=== PATIENT | male | born 1960 | race African-American/Black ===

== ENCOUNTER 2017-08-31 20:04 | Inpatient (IN) | payer OTHER ==
[~2017-08-31] VITALS: Ht 180.3 cm; Wt 143.3 kg
[~2017-08-31 20:04] MED LIST: COUMADIN10 MG; COZAAR100 MG; GABAPENTIN400 MG; LASIX20 MG; NABUMETONE750 MG; NEURONTIN600 MG; ONGLYZA5 MG
== END 2017-09-02 22:48 | disposition home or self-care (01) | DRG 311 ==
LOC: ER 20:04 → MEDI 09-01 09:38
PROC: B246ZZZ Ultrasonography of Right and Left Heart (ICD-10-PCS; principal; 2017-09-01)
PROC: C23GYZZ Positron Emission Tomographic (PET) Imaging of Myocardium using Other Radionuclide (ICD-10-PCS; 2017-09-01)
PROC: 4A12XM4 Monitoring of Cardiac Stress, External Approach (ICD-10-PCS; 2017-09-01)
PROC: 3E033HZ Introduction of Radioactive Substance into Peripheral Vein, Percutaneous Approach (ICD-10-PCS; 2017-09-01)
PROC: 4A12X4Z Monitoring of Cardiac Electrical Activity, External Approach (ICD-10-PCS; 2017-09-01)
DX: I24.9 Acute ischemic heart disease, unspecified (principal); D68.59 Other primary thrombophilia; Z79.01 Long term (current) use of anticoagulants; I10 Essential (primary) hypertension; E11.42 Type 2 diabetes mellitus with diabetic polyneuropathy; E66.8 Other obesity; E03.8 Other specified hypothyroidism

== ENCOUNTER 2019-07-01 11:04 | Emergency (ER) | payer OTHER ==
[~2019-07-01] VITALS: Ht 180.3 cm; Wt 136.1 kg
[2019-07-01] MEDS ORDERED: IRBESARTAN150 MG PO (11:08)
[2019-07-01] MEDS ORDERED: COUMADIN10 MG PO (11:09)
[2019-07-01] MEDS ORDERED: COUMADIN3 MG PO (11:09)
[2019-07-01] MEDS ORDERED: ONGLYZA5 MG PO (11:10)
[2019-07-01] MEDS ORDERED: LASIX20 MG PO (11:10)
[2019-07-01] MEDS ORDERED: LEVO-T50 MCG PO (11:10)
[2019-07-01] MEDS ORDERED: GRALISE600 MG PO (11:11)
[2019-07-01] MEDS ORDERED: B-COMPLEX WITH1 EACH PO (11:11)
[2019-07-01] MEDS ORDERED: VITAMIN B-121000 MC4 PO (11:11)
[2019-07-01] MEDS ORDERED: CARVEDILOL ER40 MG PO (11:12)
== END 2019-07-01 17:14 | disposition home or self-care (01) ==
LOC: ER 11:04
DX: S83.8X1A Sprain of other specified parts of right knee, initial encounter (principal); X50.0XXA Overexertion from strenuous movement or load, initial encounter; Y93.E5 Activity, floor mopping and cleaning; Y92.89 Other specified places as the place of occurrence of the external cause; Y99.8 Other external cause status

== ENCOUNTER 2020-08-16 22:04 | Emergency (ER) | payer OTHER ==
[~2020-08-16] VITALS: Ht 188 cm; Wt 127.0 kg
[~2020-08-16 22:04] MED LIST changes: +B-COMPLEX WITH1 EACH PO; +CARVEDILOL ER40 MG PO; +COUMADIN10 MG PO; +COUMADIN3 MG PO; +GRALISE600 MG PO; +IRBESARTAN150 MG PO; +LASIX20 MG PO; +LEVO-T50 MCG PO; +ONGLYZA5 MG PO; +VITAMIN B-121000 MC4 PO
[2020-08-17] MEDS ORDERED: ORPHENADRINE C100 MG PO (00:12)
[2020-08-17] MEDS ORDERED: KETO10TA2 PO (00:12)
== END 2020-08-17 00:20 | disposition home or self-care (01) ==
LOC: ER 22:04
DX: M43.6 Torticollis (principal); M54.5 Low back pain; R07.89 Other chest pain

== ENCOUNTER 2021-10-11 01:03 | Emergency (ER) | payer OTHER ==
[~2021-10-11] VITALS: Ht 180.3 cm; Wt 143.3 kg
[~2021-10-11 01:03] MED LIST changes: +KETO10TA2 PO; +ORPHENADRINE C100 MG PO
[2021-10-11] MEDS ORDERED: D3 + K2 DOTS 11 EACH (01:13)
[2021-10-11] MEDS ORDERED: PEPCID AC20 MG PO (07:47)
[2021-10-11] MEDS ORDERED: PERCOCET 5-3251 EACH PO (07:54)
== END 2021-10-11 08:18 | disposition home or self-care (01) ==
LOC: ER 01:03
DX: K62.5 Hemorrhage of anus and rectum (principal); M77.32 Calcaneal spur, left foot; M77.31 Calcaneal spur, right foot; M72.2 Plantar fascial fibromatosis; R10.84 Generalized abdominal pain; M79.671 Pain in right foot; M79.672 Pain in left foot

== ENCOUNTER 2022-06-27 21:25 | Emergency (ER) | payer OTHER ==
[~2022-06-27] VITALS: Ht 180.3 cm; Wt 143.3 kg
[~2022-06-27 21:25] MED LIST changes: +D3 + K2 DOTS 11 EACH; +PEPCID AC20 MG PO; +PERCOCET 5-3251 EACH PO
== END 2022-06-27 23:57 | disposition home or self-care (01) ==
LOC: ER 21:25
DX: M72.2 Plantar fascial fibromatosis (principal); M77.31 Calcaneal spur, right foot

== ENCOUNTER → 2022-07-13 | Emergency (ER) | payer OTHER ==
[~2022-07-13] VITALS: Ht 180.3 cm; Wt 143.3 kg
== END | disposition left against medical advice (07) ==
LOC: ER 13:44
DX: Z53.21 Procedure and treatment not carried out due to patient leaving prior to being seen by health care provider (principal)

== ENCOUNTER 2023-12-12 20:33 | Emergency (ER) | payer OTHER ==
[~2023-12-12] VITALS: Ht 180.3 cm; Wt 134.3 kg
[2023-12-12] MEDS ORDERED: FOLIC ACID1 MG PO (20:48)
[2023-12-12] MEDS ORDERED: ORPHENADRINE CITRATE 30 MG/ML AMPUL IM STA (22:34)
[2023-12-12] MEDS ORDERED: ORPHENADRINE CITRATE 30 MG/ML AMPUL ONE (22:38)
== END 2023-12-12 23:02 | disposition home or self-care (01) ==
LOC: ER 20:34
DX: R53.81 Other malaise (principal); G44.209 Tension-type headache, unspecified, not intractable
CPT/HCPCS: 96372; 99282; J3490

== ENCOUNTER 2024-06-24 10:30 | Emergency (ER) | payer OTHER ==
[~2024-06-24] VITALS: Ht 180.3 cm; Wt 145.1 kg
[~2024-06-24 10:30] MED LIST changes: +FOLIC ACID1 MG PO
[2024-06-24] MEDS ORDERED: METHYLPREDNISOLONE SOD SUCC 125 MG VIAL IV STA (12:49)
[2024-06-24] MEDS ORDERED: ORPHENADRINE CITRATE 30 MG/ML AMPUL IM STA (12:50)
[2024-06-24] MEDS ORDERED: ORPHENADRINE CITRATE 30 MG/ML AMPUL ONE (12:59)
[2024-06-24] MEDS ORDERED: METHYLPREDNISOLONE SOD SUCC 125 MG VIAL ONE (12:59)
== END 2024-06-24 13:51 | disposition home or self-care (01) ==
LOC: ER 10:33
DX: R68.84 Jaw pain (principal); I10 Essential (primary) hypertension; E11.9 Type 2 diabetes mellitus without complications

== ENCOUNTER → 2024-09-18 | Emergency (ER) | payer OTHER ==
[~2024-09-18] VITALS: Ht 180.3 cm; Wt 127.9 kg
[~2024-09-18] MED LIST changes: +IBUPROFEN800 MG PO; +KETOROLAC TROMETHAMINE 60 MG VIAL IM ONE; +METFORMIN HCL500 MG; +WARFARIN SODIUM10 MG PO
[2024-09-18 18:01] LABS: BILIRUBIN TOTAL 1.06 mg/dL (0.3-1.2); CALCIUM 8.9 mg/dL (8.5-10.1); CREATININE SERUM 0.72 mg/dL (0.70-1.30); GFR 109.9; GLOBULINA 3.4 G/DL (2.4-3.5); POTASSIUM 4.55 mEq/L (3.5-5.1); TOTAL PROTEIN 7.4 gm/dL (6.4-8.2)
[2024-09-18 19:44] LABS: BASO % 0.7 % (0.1-1.2); EOS # 0.16 (0.04-0.54); EOS % 2.2 % (0.7-7.0); HEMATOCRIT 42.7 % (40.1-51.0); HEMOGLOBIN 13.2 g/dL (13.7-17.5); LYMPH # 1.72 (1.18-3.74); LYMPH % 23.8 % (19.3-53.1); MONO # 0.88 (0.24-0.82); MONO % 12.2 % (4.7-12.5); NEUT # 4.38 (1.56-6.13); NEUT % 60.7 % (34.0-71.1); PLATELET COUNT 199 K/uL (163-369); RED BLOOD COUNT 5.74 M/uL (4.63-6.08)
== END | disposition home or self-care (01) ==
LOC: ER 10:34
PROVIDERS: General Practice
DX: M25.572 Pain in left ankle and joints of left foot (principal); M94.0 Chondrocostal junction syndrome [Tietze]; R07.89 Other chest pain; I10 Essential (primary) hypertension; E11.9 Type 2 diabetes mellitus without complications; Z79.84 Long term (current) use of oral hypoglycemic drugs

== ENCOUNTER 2024-12-07 17:05 | Emergency (ER) | payer OTHER ==
[~2024-12-07] VITALS: Ht 177.8 cm; Wt 113.4 kg
[~2024-12-07 17:05] MED LIST changes: -KETOROLAC TROMETHAMINE 60 MG VIAL IM ONE
[2024-12-07] MEDS ORDERED: AVAPRO300 MG (17:28)
[2024-12-07] MEDS ORDERED: 0.9 % SODIUM CHLORIDE 1,000 ML IV ONE (18:30)
[2024-12-07 18:54] LABS: BASO % 0.5 % (0.1-1.2); EOS # 0.32 (0.04-0.54); EOS % 4.1 % (0.7-7.0); LYMPH # 1.84 (1.18-3.74); LYMPH % 23.5 % (19.3-53.1); MEAN PLATELET VOLUME 11.10 fl (9.4-12.4); MONO # 0.95 (0.24-0.82); NEUT # 4.67 (1.56-6.13); NEUT % 59.5 % (34.0-71.1); RED CELL DISTRIBUTION WIDTH 14.0 % (11.6-14.4)
[2024-12-07 19:03] LABS: MONO % 12.1 % (4.7-12.5)
[2024-12-07 19:19] LABS: ALT/SGPT 57.0 U/L (12-78); AST/SGOT 35.0 U/L (15-37); BILIRUBIN TOTAL 0.73 mg/dL (0.3-1.2); BUN CREA RATIO 14.0 (7.0-25.0); CREATININE SERUM 0.86 mg/dL (0.70-1.30); GFR 89.53; GLOBULINA 3.6 G/DL (2.4-3.5); OSMOLALITY SERUM 281.0 MOSM/KG (275-295)
[2024-12-07 19:20] LABS: GLUCOSE FASTING 207.0 mg/dL (65-100)
[2024-12-07 19:21] LABS: INR 2.37
[2024-12-07] MEDS ORDERED: KETOROLAC TROMETHAMINE 30 MG VIAL IV ONE (20:00)
[2024-12-07] MEDS ORDERED: KETOROLAC TROMETHAMINE 30 MG VIAL ONE (20:01)
[2024-12-07 20:09] LABS: COVID-19 AG NEGATIVE (NEGATIVE)
[2024-12-07 20:19] LABS: URINE APPEARANCE Clear; URINE BILIRRUBIN Negative (NEGATIVE); URINE BLOOD Negative; URINE COLOR Yellow; URINE GLUCOSE Negative (NEGATIVE); URINE KETONE Trace (NEGATIVE); URINE LEUKOCYTE Trace; URINE NITRATE Negative; URINE PROTEIN Trace (NEGATIVE); URINE UROBILINOGEN 0.2 E.U./dl
[2024-12-07 20:20] LABS: URINE BACTERIA 580.7 uL (0.0-1933); URINE CAST 0.58 uL (0.0-1.40); URINE EPITHELIAL CELLS 16.1 uL (0.0-38.8); URINE RBC 1.3 uL (0.0-20.8); URINE WBC 32.0 uL (0.0-23.2)
[2024-12-07] MEDS ORDERED: PEPCID AC20 MG PO (20:39)
[2024-12-07] MEDS ORDERED: BACTRIM DS TAB1 EACH PO (20:39)
== END 2024-12-07 20:48 | disposition home or self-care (01) ==
LOC: ER 17:09
PROVIDERS: General Practice
DX: N39.0 Urinary tract infection, site not specified (principal); R19.7 Diarrhea, unspecified; Z20.822 Contact with and (suspected) exposure to COVID-19; I10 Essential (primary) hypertension; E11.9 Type 2 diabetes mellitus without complications; Z79.84 Long term (current) use of oral hypoglycemic drugs

== ENCOUNTER 2024-12-30 13:51 | Emergency (ER) | payer OTHER ==
[~2024-12-30] VITALS: Ht 180.3 cm; Wt 131.5 kg
[~2024-12-30 13:51] MED LIST changes: +AVAPRO300 MG; +BACTRIM DS TAB1 EACH PO
[2024-12-30] MEDS ORDERED: KETOROLAC TROMETHAMINE 30 MG VIAL IV STA (16:54)
[2024-12-30] MEDS ORDERED: TRAMADOL HCL 50 MG TABLET PO STA (16:54)
[2024-12-30] MEDS ORDERED: KETOROLAC TROMETHAMINE 30 MG VIAL ONE (17:00)
[2024-12-30 17:47] LABS: BASO % 0.6 % (0.1-1.2); EOS # 0.22 (0.04-0.54); EOS % 3.2 % (0.7-7.0); LYMPH # 1.88 (1.18-3.74); LYMPH % 27.1 % (19.3-53.1); MEAN PLATELET VOLUME 10.40 fl (9.4-12.4); MONO # 0.74 (0.24-0.82); MONO % 10.6 % (4.7-12.5); NEUT # 4.05 (1.56-6.13); NEUT % 58.2 % (34.0-71.1); RED CELL DISTRIBUTION WIDTH 15.6 % (11.6-14.4)
[2024-12-30 17:57] LABS: URINE APPEARANCE Clear; URINE BILIRRUBIN Negative (NEGATIVE); URINE BLOOD Negative; URINE COLOR Yellow; URINE GLUCOSE Negative (NEGATIVE); URINE KETONE Trace (NEGATIVE); URINE LEUKOCYTE Small; URINE NITRATE Negative; URINE PROTEIN Negative (NEGATIVE); URINE UROBILINOGEN 0.2 E.U./dl
[2024-12-30 18:01] LABS: URINE BACTERIA 767.9 uL (0.0-1933); URINE EPITHELIAL CELLS 15.9 uL (0.0-38.8); URINE WBC 55.3 uL (0.0-23.2)
[2024-12-30 18:06] LABS: URINE CAST 0.14 uL (0.0-1.40); URINE RBC 1.4 uL (0.0-20.8)
[2024-12-30 18:27] LABS: BUN CREA RATIO 13.0 (7.0-25.0); CREATININE SERUM 0.72 mg/dL (0.70-1.30); GFR 109.9; GLUCOSE FASTING 104.0 mg/dL (65-100); OSMOLALITY SERUM 284.0 MOSM/KG (275-295); PROSTATIC SPECIFIC ANTIGEN 1.86 NG/ML (0.010-4.00)
== END 2024-12-30 20:46 | disposition home or self-care (01) ==
LOC: ER 13:51
DX: R10.9 Unspecified abdominal pain (principal); E11.9 Type 2 diabetes mellitus without complications; Z79.84 Long term (current) use of oral hypoglycemic drugs; I10 Essential (primary) hypertension; I12.9 Hypertensive chronic kidney disease with stage 1 through stage 4 chronic kidney disease, or unspecified chronic kidney disease; N18.9 Chronic kidney disease, unspecified; M10.9 Gout, unspecified; N20.0 Calculus of kidney; Z87.442 Personal history of urinary calculi

== ENCOUNTER 2025-03-01 19:45 | Emergency (ER) | payer OTHER ==
[~2025-03-01] VITALS: Ht 180.3 cm; Wt 133.8 kg
[2025-03-01] MEDS ORDERED: JANTOVEN3 MG PO (21:24)
[2025-03-01] MEDS ORDERED: DIOVAN160 M1 PO (21:26)
[2025-03-01] MEDS ORDERED: ONDANSETRON HCL 4 MG in 0.9 % SODIUM CHLORIDE 50 ML IV ONE (22:00)
[2025-03-01] MEDS ORDERED: KETOROLAC TROMETHAMINE 30 MG VIAL IU ONE (22:00)
[2025-03-01] MEDS ORDERED: 0.9 % SODIUM CHLORIDE 1,000 ML IV SCH (22:00)
[2025-03-01] MEDS ORDERED: FAMOtidine 10 MG/ML (4ML VIAL) IV PUSH ONE ×2 (22:00→22:15)
[2025-03-01] MEDS ORDERED: ACETAMINOPHEN 500 MG GEL..CAP PO ONE (22:15)
[2025-03-01 23:58] LABS: BASO % 0.5 % (0.1-1.2); EOS # 0.28 (0.04-0.54); EOS % 3.2 % (0.7-7.0); LYMPH # 2.11 (1.18-3.74); LYMPH % 24.1 % (19.3-53.1); MEAN PLATELET VOLUME 11.10 fl (9.4-12.4); MONO # 1.01 (0.24-0.82); MONO % 11.5 % (4.7-12.5); NEUT # 5.29 (1.56-6.13); NEUT % 60.4 % (34.0-71.1); RED CELL DISTRIBUTION WIDTH 14.3 % (11.6-14.4)
[2025-03-02 00:28] LABS: INR 1.22
[2025-03-02 00:33] LABS: ALT/SGPT 48.0 U/L (12-78); AST/SGOT 40.0 U/L (15-37); BILIRUBIN TOTAL 0.75 mg/dL (0.3-1.2); BUN CREA RATIO 17.0 (7.0-25.0); CREATININE SERUM 1.04 mg/dL (0.70-1.30); GFR 71.9; GLOBULINA 3.6 G/DL (2.4-3.5); OSMOLALITY SERUM 285.0 MOSM/KG (275-295)
[2025-03-02 00:38] LABS: GLUCOSE FASTING 259.0 mg/dL (65-100)
[2025-03-02 01:20] LABS: URINE APPEARANCE Clear; URINE BILIRRUBIN Negative (NEGATIVE); URINE BLOOD Negative; URINE COLOR Yellow; URINE KETONE Trace (NEGATIVE); URINE LEUKOCYTE Negative; URINE NITRATE Negative; URINE PROTEIN Negative (NEGATIVE); URINE UROBILINOGEN 0.2 E.U./dl
[2025-03-02 02:07] LABS: URINE BACTERIA 0 uL (0.0-1933); URINE CAST 0.00 uL (0.0-1.40); URINE EPITHELIAL CELLS 1.3 uL (0.0-38.8); URINE GLUCOSE >=1000 MG/DL (NEGATIVE); URINE RBC 0.5 uL (0.0-20.8); URINE WBC 1.3 uL (0.0-23.2)
== END 2025-03-02 07:50 ==
LOC: ER 19:46
PROVIDERS: General Practice
DX: E11.65 Type 2 diabetes mellitus with hyperglycemia (principal); Z79.84 Long term (current) use of oral hypoglycemic drugs; N39.9 Disorder of urinary system, unspecified

== ENCOUNTER 2025-04-10 07:30 | Outpatient (CLI) | payer OTHER ==
[~2025-04-10 07:30] MED LIST changes: +DIOVAN160 M1 PO; +JANTOVEN3 MG PO
[2025-04-10] MEDS ORDERED: JARDIANCE10 MG PO (11:34)
== END 2025-04-10 07:31 | disposition home or self-care (01) ==
LOC: NUCLEAR 07:30
PROVIDERS: ATTEND Internal Medicine
DX: I11.9 Hypertensive heart disease without heart failure (principal)
CPT/HCPCS: 78452; 93017; A9500

== ENCOUNTER 2025-04-10 10:35 | Emergency (ER) | payer OTHER ==
[~2025-04-10] VITALS: Ht 180.3 cm; Wt 135.6 kg
[2025-04-10] MEDS ORDERED: JARDIANCE10 MG PO (11:34)
[2025-04-10] MEDS ORDERED: KETOROLAC TROMETHAMINE 30 MG VIAL ONE (12:09)
[2025-04-10] MEDS ORDERED: KETOROLAC TROMETHAMINE 30 MG VIAL IM ONE (12:15)
[2025-04-10 13:07] LABS: BASO % 0.5 % (0.1-1.2); EOS # 0.23 (0.04-0.54); EOS % 3.8 % (0.7-7.0); LYMPH # 1.27 (1.18-3.74); LYMPH % 20.9 % (19.3-53.1); MEAN PLATELET VOLUME 10.50 fl (9.4-12.4); MONO # 0.64 (0.24-0.82); MONO % 10.5 % (4.7-12.5); NEUT # 3.88 (1.56-6.13); NEUT % 63.8 % (34.0-71.1); RED CELL DISTRIBUTION WIDTH 14.2 % (11.6-14.4)
[2025-04-10 13:38] LABS: ALT/SGPT 51.0 U/L (12-78); AST/SGOT 24.0 U/L (15-37); BILIRUBIN TOTAL 0.91 mg/dL (0.3-1.2); BUN CREA RATIO 17.0 (7.0-25.0); CREATININE SERUM 0.92 mg/dL (0.70-1.30); GFR 82.83; GLOBULINA 3.9 G/DL (2.4-3.5); OSMOLALITY SERUM 289.0 MOSM/KG (275-295)
[2025-04-10 13:39] LABS: GLUCOSE FASTING 255.0 mg/dL (65-100)
== END 2025-04-10 15:10 | disposition home or self-care (01) ==
LOC: ER 10:36
PROVIDERS: General Practice
DX: S92.911A Unspecified fracture of right toe(s), initial encounter for closed fracture (principal); X83.8XXA Intentional self-harm by other specified means, initial encounter; Y93.89 Activity, other specified; Y92.89 Other specified places as the place of occurrence of the external cause; Y99.8 Other external cause status; I10 Essential (primary) hypertension; E03.8 Other specified hypothyroidism; E11.9 Type 2 diabetes mellitus without complications
CPT/HCPCS: 36415; 73660; 96372; 99283; J1885